=== PATIENT | female | born 1995 | race African-American/Black ===

== ENCOUNTER 2017-07-14 15:11 | Emergency (ER) | payer MEDICAID ==
[~2017-07-14] VITALS: Ht 170.2 cm; Wt 90.0 kg
[2017-07-14 15:12] VITALS: BP 136/75; PULSE 98; RESP 18; TEMP 98.8; O2SAT 100
--- NOTE | 2017-07-14 17:54 | PD ---
HPI Chief Complaint: GI Complaint Time Seen by Provider: 17:47 Travel History International Travel<30 days: No Contact w/Intl Traveler<30days: No Traveled to known affect area: No History of Present Illness HPI 21-year-old female here for evaluation of nausea, vomiting, and lower abdominal/ pelvic pain. Symptoms of a going on for about 2 weeks. Pain is describes as menstrual cramping, moderate, intermittent. Patient has had nausea and a few episodes of vomiting over the last couple of weeks. No history of abdominal surgeries. She denies vaginal bleeding or discharge. No urinary symptoms. No fevers or chills. LMP was June 02. PFSH Past Medical History ?: Unknown LMP: 06/02/17 Social History Tobacco Use: No Allergies-Medications (Allergen,Severity, Reaction): Coded Allergies: No Known Allergies (Unverified , 07/14/17) Reported Meds & Prescriptions Reported Meds & Active Scripts Active No Active Prescriptions or Reported Medications Review of Systems Except as stated in HPI: all other systems reviewed are Neg Physical Exam Narrative GENERAL: Well-developed, well-nourished, comfortable, no apparent distress. SKIN: Focused skin assessment warm/dry. HEAD: Atraumatic. Normocephalic. EYES: Pupils equal and round. No scleral icterus. No injection or drainage. ENT: Mucous membranes pink and moist. NECK: Trachea midline. No JVD. CARDIOVASCULAR: Regular rate and rhythm. RESPIRATORY: No accessory muscle use. Clear to auscultation. Breath sounds equal bilaterally. GASTROINTESTINAL: Abdomen soft, nondistended. Mild suprapubic tenderness without peritoneal signs. Rest of abdomen is soft and nontender. No hernias. Normal bowel sounds. MUSCULOSKELETAL: No obvious deformities. No clubbing. No cyanosis. No edema. NEUROLOGICAL: Awake and alert. No obvious cranial nerve deficits. Motor grossly within normal limits. Normal speech. PSYCHIATRIC: Appropriate mood and affect; insight and judgment normal. Data Data Last Documented VS Vital Signs Date Time Temp Pulse Resp B/P (MAP) Pulse Ox O2 Delivery O2 Flow Rate FiO2 07/14/17 20:30 98.5 78 16 141/66 (91) 99 07/14/17 15:12 Room Air Orders Orders Beta Hcg (Quant/Titer) (07/14/17 17:50) Complete Blood Count With Diff (07/14/17 17:50) Comprehensive Metabolic Panel (07/14/17 17:50) Urinalysis - C+S If Indicated (07/14/17 17:50) Iv Access Insert/Monitor (07/14/17 17:50) Ecg Monitoring (07/14/17 17:50) Oximetry (07/14/17 17:50) Ed Urine Pregnancytest Poc (07/14/17 17:50) Us Pelvis (Ques Pr/Ect)W Trans (07/14/17 ) Ed Discharge Order (07/14/17 20:31) Labs Laboratory Tests Test 07/14/17 18:10 White Blood Count 12.1 TH/MM3 Red Blood Count 4.58 MIL/MM3 Hemoglobin 10.0 GM/DL Hematocrit 32.7 % Mean Corpuscular Volume 71.3 FL Mean Corpuscular Hemoglobin 21.9 PG Mean Corpuscular Hemoglobin Concent 30.7 % Red Cell Distribution Width 19.7 % Platelet Count 257 TH/MM3 Mean Platelet Volume 10.1 FL Neutrophils (%) (Auto) 61.8 % Lymphocytes (%) (Auto) 30.0 % Monocytes (%) (Auto) 7.3 % Eosinophils (%) (Auto) 0.5 % Basophils (%) (Auto) 0.4 % Neutrophils # (Auto) 7.4 TH/MM3 Lymphocytes # (Auto) 3.6 TH/MM3 Monocytes # (Auto) 0.9 TH/MM3 Eosinophils # (Auto) 0.1 TH/MM3 Basophils # (Auto) 0.0 TH/MM3 CBC Comment DIFF FINAL Differential Comment Urine Color YELLOW Urine Turbidity CLEAR Urine pH 7.0 Urine Specific [place] 1.022 Urine Protein NEG mg/dL Urine Glucose (UA) NEG mg/dL Urine Ketones NEG mg/dL Urine Occult Blood NEG Urine Nitrite NEG Urine Bilirubin NEG Urine Urobilinogen LESS THAN 2.0 MG/DL Urine Leukocyte Esterase NEG Urine WBC LESS THAN 1 /hpf Urine Squamous Epithelial Cells 1 /hpf Microscopic Urinalysis Comment CULT NOT INDICATED Blood Urea Nitrogen 12 MG/DL Creatinine 0.81 MG/DL Random Glucose 86 MG/DL Total Protein 8.1 GM/DL Albumin 3.8 GM/DL Calcium Level 9.1 MG/DL Alkaline Phosphatase 85 U/L Aspartate Amino Transf (AST/SGOT) 10 U/L Alanine Aminotransferase (ALT/SGPT) 18 U/L Total Bilirubin 0.1 MG/DL Sodium Level 140 MEQ/L Potassium Level 3.6 MEQ/L Chloride Level 106 MEQ/L Carbon Dioxide Level 27.7 MEQ/L Anion Gap 6 MEQ/L Estimat Glomerular Filtration Rate 110 ML/MIN Human Chorionic Gonadotropin, Quant 3574 MIU/ML [facility] Medical Decision Making Medical Screen Exam Complete: Yes Emergency Medical Condition: Yes Differential Diagnosis UTI, cystitis, , ovarian cyst, ovarian torsion less likely, acute intra -abdominal/surgical process less likely, PID Narrative Course Vital signs reviewed. CBC shows WBC 12.1, hemoglobin 10, hematocrit 32.7, platelets 257. CMP is unremarkable. Beta hCG is 3574. UA is not suggestive of UTI. Pelvic ultrasound: Tiny IUP in the endometrial cavity towards the fundus to early to date. Patient made aware of all findings. She is resting comfortably. She states she will find an OPERATIONAL METEOROLOGIST when she returns to [place]. I advised that she start taking vitamins. I will also give her the information to [facility] follow-up with this week. She was informed on when to return to the emergency department. She verbalizes understanding and agreement with plan. Diagnosis Primary Impression: Qualified Codes: Z3A.01 - Less than 8 weeks gestation of Referrals: [facility] 3 days [employer] 3 days Additional Instructions: Follow-up with an OPERATIONAL METEOROLOGIST physician this week. Return to the emergency room if worsening symptoms or any other concerns. Scripts No Active Prescriptions or Reported Meds Disposition: 01 DISCHARGE HOME Condition: Stable Corona Cornelius MD Jul 14, 2017 17:53
[2017-07-14 18:33] LABS: BLOOD, URINE NEG (NEG); GLUCOSE,URINE NEG (NEG); KETONE, URINE NEG (NEG); NITRITE,URINE NEG (NEG); SQUAMOUS EPITHELIAL CELL URINE 1 /hpf (0-5); URINE COLOR YELLOW (YELLW/STRAW)
[2017-07-14 18:35] LABS: AUTOMATED NEUTROPHIL # 7.4 TH/MM3 (1.8-7.7); BASOPHIL % 0.4 % (0.0-2.0); EOSINOPHIL # 0.1 TH/MM3 (0-0.4); EOSINOPHIL % 0.5 % (0.0-4.0); HEMATOCRIT 32.7 % (35.0-46.0); HEMO FLAGS DIFF FINAL; LYMPHOCYTE # 3.6 TH/MM3 (1.0-4.8); MEAN CELL VOLUME 71.3 FL (80.0-100.0); MEAN CORPUSCULAR HEMOGLOBIN 21.9 PG (27.0-34.0); MEAN CORPUSCULAR HGB CONC 30.7 % (32.0-36.0); MONO % 7.3 % (0.0-8.0); NEUT % 61.8 % (16.0-70.0); PLATELET COUNT 257 TH/MM3 (150-450); RED BLOOD COUNT 4.58 MIL/MM3 (4.00-5.30); RED CELL DISTRIBUTION WIDTH 19.7 % (11.6-17.2); WHITE BLOOD COUNT 12.1 TH/MM3 (4.0-11.0)
[2017-07-14 18:37] LABS: COMMENT (UR) CULT NOT INDICATED; CULTURE IF INDICATED CULT NOT INDICATED
[2017-07-14 18:41] LABS: ANION GAP 6 MEQ/L (5-15); AST (GOT) 10 U/L (16-38); BICARBONATE 27.7 MEQ/L (21.0-32.0); BLOOD UREA NITROGEN 12 MG/DL (7-18); CHLORIDE 106 MEQ/L (98-107); GLOMERULAR FILTRATION RATE 110 ML/MIN (>89); POTASSIUM 3.6 MEQ/L (3.5-5.1); SODIUM (NA) 140 MEQ/L (136-145)
[2017-07-14 18:42] LABS: ALT (GPT) 18 U/L (9-42)
[2017-07-14 18:58] LABS: ALKALINE PHOSPHATASE 85 U/L (45-117); BETA HCG QUANT 3574 MIU/ML (0-5); TOTAL BILIRUBIN ADULT 0.1 MG/DL (0.2-1.0)
--- NOTE | 2017-07-14 20:09 | RADRPT ---
EXAM DATE/TIME: 07/14/2017 18:55 [facility] COMPARISON: No previous studies available for comparison. INDICATIONS : Pelvic pain. LAB(S): Beta-hC,574 MEDICAL HISTORY : None. SURGICAL HISTORY : None. ENCOUNTER: Initial ACUITY: 1 day PAIN SCORE: 3/10 LOCATION: Bilateral pelvis MEASUREMENTS: UTERUS: 8.7 x 5.7 x 4.5 cm ENDOMETRIAL STRIPE: >20 mm RIGHT OVARY: Not visualized cm LEFT OVARY: 3.0 x 3.7 x 1.9 cm FREE FLUID: Yes FINDINGS: UTERUS: There is a early gestational sac in the uterine endometrial fundus pole and yolk sa c not visualized. RIGHT OVARY: Not visualized LEFT OVARY: Ovary contains no mass or significant cystic lesion. MISCELLANEOUS: Small amount of free fluid CONCLUSION: Tiny intrauterine endometrial cavity toward the fundus too early to date Christophe Bess MD on July 14, 2017 at 20:05 Board Certified Radiologist. This report was verified electronically.
[2017-07-14 20:30] VITALS: BP 141/66; TEMP 98.5
== END 2017-07-14 20:48 | disposition home or self-care (01) ==
LOC: NEPD 15:11
DX: O26.891 Other specified pregnancy related conditions, first trimester (principal); R11.2 Nausea with vomiting, unspecified; R10.30 Lower abdominal pain, unspecified; R10.2 Pelvic and perineal pain; Z3A.01 Less than 8 weeks gestation of pregnancy
CPT/HCPCS: 76700; 76817; 80053; 81001; 84702; 84703; 85025; 99285